=== PATIENT | male | born 1950 | race Caucasian/White ===

== ENCOUNTER 2022-02-17 18:09 | Observation (INO) | payer MEDICARE, MEDICAID ==
[2022-02-17 18:59] LABS: #Basophils 0.1 10x3/uL (0.0-0.2); #Eosinphils 0.2 10x3/uL (0.0-0.5); #Monocytes 0.5 10x3/uL (0.0-1.1); #Neutrophils 6.8 10x3/uL (1.5-8.4); %Basophils 0.7 % (0.0-2.0); %Eosinophils 2.4 % (0.0-6.0); %Lymphocytes 15.1 % (18.0-47.0); %Monocytes 5.5 % (0.0-10.0); Hemoglobin 13.6 g/dL (13.5-17.5); Mean Corpuscular HGB CONC 33.4 g/dL (32.0-36.0); Mean Corpuscular Hemoglobin 30.5 pg (27.0-33.0); Mean Corpuscular Volume 91.3 fl (81.2-95.1); Mean Platelet Volume 11.5 fl (7.4-10.4); Platelet Count 202 10x3/uL (150-450); RBC Distribution Width 12.6 % (11.5-14.5); Red Blood Cell (RBC) Count 4.46 10x6/uL (4.32-5.72); White Blood Cell (WBC) Count 8.9 10x3/uL (3.5-10.5)
[2022-02-17 19:13] LABS: ALT (SGPT) 14 U/L (8-55); AST (SGOT) 16 U/L (5-34); Alkaline Phosphatase 61 U/L (40-110); Anion Gap 14 mmol/L (10-20); BUN (Urea Nitrogen) 18 mg/dL (8.4-25.7); Bilirubin, Total 0.5 mg/dL (0.2-1.2); Calc. Creatinine Clearance 0 mL/min (70-130); Carbon Dioxide 29 mmol/L (23-31); Chloride 104 mmol/L (98-107); Estimated GFR 55; Globulin 3.2 g/dL (2.4-3.5); Glucose 119 mg/dL (80-115); Potassium 3.7 mmol/L (3.5-5.1); Protein, Total 7.2 g/dL (5.8-8.1); Sodium 143 mmol/L (136-145)
[2022-02-17 19:38] LABS: Magnesium 1.8 mg/dL (1.6-2.6)
[2022-02-17] MEDS ORDERED: Magnesium 2 GM/50 ML BAG (IN WATER) ONE (20:19)
[2022-02-17 21:25] VITALS: BMI 27.8
[2022-02-17 21:45] LABS: Lactic Acid 1.8 mmol/L (0.5-2.2)
[2022-02-17 23:49] LABS: Magnesium 2.3 mg/dL (1.6-2.6)
[2022-02-17 23:56] LABS: Troponin I 0.014 ng/mL (< 0.028)
[2022-02-18 06:26] LABS: Anion Gap 11 mmol/L (10-20); BUN (Urea Nitrogen) 17 mg/dL (8.4-25.7); Calc. Creatinine Clearance 88 mL/min (70-130); Carbon Dioxide 29 mmol/L (23-31); Chloride 107 mmol/L (98-107); Potassium 3.2 mmol/L (3.5-5.1); Sodium 144 mmol/L (136-145)
[2022-02-18 06:27] LABS: Calcium 8.6 mg/dL (7.8-10.44); Estimated GFR 81; Glucose 89 mg/dL (80-115)
[2022-02-18 06:28] LABS: Troponin I 0.019 ng/mL (< 0.028)
[2022-02-18 06:32] LABS: #Basophils 0.1 10x3/uL (0.0-0.2); #Eosinphils 0.3 10x3/uL (0.0-0.5); #Monocytes 0.5 10x3/uL (0.0-1.1); #Neutrophils 3.6 10x3/uL (1.5-8.4); %Basophils 0.9 % (0.0-2.0); %Eosinophils 4.4 % (0.0-6.0); %Lymphocytes 33.8 % (18.0-47.0); %Neutrophils 53.6 % (40.0-75.0); Hemoglobin 13.3 g/dL (13.5-17.5); Mean Corpuscular HGB CONC 34.1 g/dL (32.0-36.0); Mean Corpuscular Hemoglobin 30.4 pg (27.0-33.0); Mean Corpuscular Volume 89.2 fl (81.2-95.1); Mean Platelet Volume 11.1 fl (7.4-10.4); Platelet Count 159 10x3/uL (150-450); RBC Distribution Width 12.5 % (11.5-14.5); Red Blood Cell (RBC) Count 4.37 10x6/uL (4.32-5.72); White Blood Cell (WBC) Count 6.8 10x3/uL (3.5-10.5)
[2022-02-18] MEDS: Enoxaparin Sodium 40 MG/0.4 ML SYRINGE SC SCH (08:51)
[2022-02-18] MEDS ORDERED: Aspirin 81 mg Enteric Coated Tablet PO SCH (12:00)
[2022-02-18] MEDS ORDERED: Potassium Chloride 20 MEQ TAB PO SCH (12:00)
[2022-02-18] MEDS: traZODone HCl 50 MG TAB PO SCH (15:38)
[2022-02-18 17:14] LABS: Hemoglobin A1c 5.2 % (4.0-6.0)
[2022-02-18] MEDS ORDERED: traZODone HCl 50 MG TAB PO SCH (21:00)
[2022-02-19 05:33] LABS: #Eosinphils 0.3 10x3/uL (0.0-0.5); #Monocytes 0.3 10x3/uL (0.0-1.1); #Neutrophils 2.9 10x3/uL (1.5-8.4); %Basophils 0.7 % (0.0-2.0); %Eosinophils 6.3 % (0.0-6.0); %Lymphocytes 32.5 % (18.0-47.0); %Monocytes 6.3 % (0.0-10.0); Hemoglobin 12.8 g/dL (13.5-17.5); Mean Corpuscular HGB CONC 33.5 g/dL (32.0-36.0); Mean Corpuscular Hemoglobin 30.4 pg (27.0-33.0); Mean Corpuscular Volume 90.7 fl (81.2-95.1); Mean Platelet Volume 11.6 fl (7.4-10.4); Platelet Count 148 10x3/uL (150-450); RBC Distribution Width 12.5 % (11.5-14.5); Red Blood Cell (RBC) Count 4.21 10x6/uL (4.32-5.72); White Blood Cell (WBC) Count 5.4 10x3/uL (3.5-10.5)
[2022-02-19 05:46] LABS: ALT (SGPT) 13 U/L (8-55); AST (SGOT) 12 U/L (5-34); Albumin 3.4 g/dL (3.4-4.8); Alkaline Phosphatase 58 U/L (40-110); Anion Gap 12 mmol/L (10-20); BUN (Urea Nitrogen) 18 mg/dL (8.4-25.7); Bilirubin, Direct 0.3 mg/dL (0.1-0.3); Bilirubin, Total 0.7 mg/dL (0.2-1.2); Calc. Creatinine Clearance 106 mL/min (70-130); Calcium 8.4 mg/dL (7.8-10.44); Carbon Dioxide 26 mmol/L (23-31); Cardiac Risk 3.8 (Less than 4.5); Chloride 107 mmol/L (98-107); Cholesterol 98 mg/dl (< 200 Desired); Estimated GFR 94; Glucose 81 mg/dL (80-115); HDL Cholesterol 26 mg/dL (>60 Neg Risk); LDL Cholesterol, Calculated 53 mg/dL; Magnesium 1.9 mg/dL (1.6-2.6); Potassium 3.4 mmol/L (3.5-5.1); Protein, Total 6.3 g/dL (5.8-8.1); Sodium 142 mmol/L (136-145); Triglycerides 95 mg/dL (Less than 150)
[2022-02-19 05:52] LABS: Troponin I 0.017 ng/mL (< 0.028)
[2022-02-19 07:51] VITALS: BP 120/74; TEMP 97.6
[2022-02-19] MEDS ORDERED: Potassium Chloride 20 MEQ TAB PO SCH (08:00)
[2022-02-19] MEDS ORDERED: Donepezil HCl 5 MG TAB PO SCH (09:00)
[2022-02-19] MEDS ORDERED: Atorvastatin Calcium 20 MG TAB PO SCH ×2 (09:00)
[2022-02-19] MEDS ORDERED: Citalopram 20 MG TAB PO SCH (09:00)
[2022-02-19] MEDS ORDERED: Aspirin 81 mg Enteric Coated Tablet PO SCH (09:00)
[2022-02-19] MEDS ORDERED: Furosemide 20 MG TAB PO SCH (09:00)
[2022-02-19] MEDS: traZODone HCl 50 MG TAB PO SCH (10:09)
[2022-02-19] MEDS: Enoxaparin Sodium 40 MG/0.4 ML SYRINGE SC SCH (10:09)
== END 2022-02-19 11:02 | disposition home or self-care (01) ==
LOC: CSHERS 18:09 → CSHERHOLD 21:19 → INTOOBSV 21:19 → CSHTELE 02-18 02:13
PROVIDERS: ADMIT Family Medicine; ATTEND Family Medicine
DX: R41.82 Altered mental status, unspecified (principal); F03.91 Unspecified dementia, unspecified severity, with behavioral disturbance; G93.41 Metabolic encephalopathy; R00.1 Bradycardia, unspecified; I10 Essential (primary) hypertension; E78.5 Hyperlipidemia, unspecified; F23 Brief psychotic disorder; E55.9 Vitamin D deficiency, unspecified; Z79.899 Other long term (current) drug therapy; Z20.822 Contact with and (suspected) exposure to COVID-19
CPT/HCPCS: 70551; 71045; 80048 ×2; 80061; 80076; 83036; 83605; 83735 ×2; 84484 ×3; 85025 ×2; 93005 ×2; 93306; 93880; 96365; 96372 ×2; 99285; G0378 ×3; U0003; U0005; 36415; 80053; 84443; 93010; J1650; J3475